=== PATIENT | female | born 1985 | race African-American/Black ===

== ENCOUNTER 2024-08-07 19:53 | Emergency (ER) | payer MEDICAID, OTHER ==
[~2024-08-07] VITALS: Ht 162.6 cm; Wt 59.0 kg
[2024-08-07 21:59] VITALS: BP 129/85; TEMP 98.1
[2024-08-07 22:23] VITALS: O2SAT 95
== END 2024-08-07 22:24 | disposition home or self-care (01) ==
LOC: ER 20:06
DX: R21 Rash and other nonspecific skin eruption (principal)